=== PATIENT | female | born 1940 | race Caucasian/White ===

== ENCOUNTER 2018-07-30 02:00 | Emergency (ER) | payer OTHER, MEDICARE ==
--- OUTSIDE RECORDS SUMMARY | 2018-07-30 02:03 | XMS REPORT | Clinical Summary ---
:1940 Author Organization [facility] Address [address] [place] [id number] Care Team Providers Name Role Phone Vitaly Serrato MD Primary Care Provider Allergies Active Allergy Reactions Severity Noted Date Comments Sulfamethoxazole-Trimethoprim 07/29/2016 Cefaclor 07/29/2016 Codeine 07/29/2016 Epinephrine Low 07/29/2016 Penicillins 07/29/2016 Medications Medication Sig Dispensed Refills Start Date End Date Status besifloxacin (BESIVANCE) Apply to eye(s). 0 Active 0.6 % DrpS bromfenac (PROLENSA) Apply to eye(s). 0 Active 0.07 % Drop calcium carbonate Take 1 tablet by 0 Active (CALCIUM CARBONATE) 300 mouth 3 (three) mg Chew times daily. difluprednate (DUREZOL) Apply to eye(s). 0 Active 0.05 % Drop moxifloxacin (VIGAMOX) 1 drop. 0 Active 0.5 % ophthalmic solution multivitamin per tablet Take 1 tablet by 0 Active mouth daily. Active Problems Not on file Social History Tobacco Use Types Packs/Day Years Used Date Former Smoker Quit: 07/30/1989 Alcohol Use Drinks/Week oz/Week Comments Yes 2 Glasses of wine 1.2 Sex Assigned at Date Recorded Not on file Job Start Date Occupation Industry Not on file Not on file Not on file Travel History Travel Start Travel End No recent travel history available. Last Filed Vital Signs Not on file Plan of Treatment Not on file Implants Implanted Type Area Sld Inclusion Teacher Device Shelf Model / Identifier Expiration Serial / Lot Date Iol Tecnis Zcb00 25.5 Majo [id number] - [id number] Ophthalmology Left: [employer] 03/24/2020 [id number] / Implanted: Qty: 1 on 07/30/2016 by Dane Bee MD Eye [id number] / N./A Iol Tecnis Zcb00 23.0 Majo [id number] - [id number] Ophthalmology Right: [employer] 06/29/2020 [id number] / Implanted: Qty: 1 on 09/03/2016 by Dane Bee MD Eye [id number] / Results Not on fileafter 07/29/2017 Insurance Payer Benefit Plan / Group Subscriber ID Type Phone Address MEDICARE MEDICARE A B xxxxxxxxxx Medicare MCR SUPPLEMENT/INDIVIDUAL AARP/[facility] xxxxxxxxxxx [facility]
--- OUTSIDE RECORDS SUMMARY | 2018-07-30 02:03 | XMS REPORT ---
:1940 [facility] Address [address] [place] [address] Dr. Ward [address] [place] [address] Care Team Providers Name Role Phone Unavailable Unavailable Unavailable Problems This patient has no known problems. Allergies, Adverse Reactions, Alerts This patient has no known allergies or adverse reactions. Medications This patient has no known medications.
[2018-07-30 02:57] LABS: Absolute Lymphocytes (CBC) 3.3 K/uL (0.7-4.9); Absolute Monocytes 0.9 K/uL (0.1-1.3); Absolute Neutrophil 3.6 K/uL (1.8-8.0); Basophils % 0.9 % (0-1.3); Eosinophils % 6.3 % (0-4.4); Hematocrit 40.9 % (36.0-45.0); Lymphocytes % 39.4 % (15.3-44.8); MPV 11.1 fL (7.6-11.3); Monocytes % 10.3 % (3.3-12.3); RBC Red Blood Cell Count 4.39 M/uL (3.86-4.86)
[2018-07-30 02:58] LABS: Protime INR 0.91
[2018-07-30 03:26] LABS: ALT/SGPT 19 U/L (12-78); AST/SGOT 15 U/L (15-37); Albumin 3.8 g/dL (3.4-5.0); Alkaline Phosphatase 106 U/L (45-117); BUN Blood Urea Nitrogen 14 mg/dL (7-18); Bicarbonate 28 mmol/L (21-32); Bilirubin Direct < 0.1 mg/dL (0-0.2); Bilirubin Total 0.3 mg/dL (0.2-1.0); Glucose Level 102 mg/dL (74-106); Magnesium 2.4 mg/dL (1.8-2.4); NT PRO-BNP 57 pg/mL (<450); Potassium 3.5 mmol/L (3.5-5.1); Protein, Total 7.7 g/dL (6.4-8.2); Sodium Level 141 mmol/L (136-145); Troponin (Emerg Dept Use Only) < 0.02 ng/mL (0.0-0.045)
--- NOTE | 2018-07-30 03:52 | ER ---
Nurse's Notes [facility] Name: Citlaly Clements Age: 77 yrs Sex: Female : 1940 Arrival Date: 07/30/2018 Time: 02:05 Bed 4 Private MD: Diagnosis: Palpitations Presentation: 07/30 02:05 Presenting complaint: Patient states: that she woke up at midnight with pounding heart fc in her chest. Denies any nausea, vomiting or shortness of breath. States that she took her bp and it was high and the heart rate was irregular. Transition of care: patient was not received from another setting of care. Onset of symptoms was July 30, 2018 at 00:00. Risk Assessment: Do you want to hurt yourself or someone else? Patient reports no desire to harm self or others. Initial Sepsis Screen: Does the patient meet any 2 criteria? No. Patient's initial sepsis screen is negative. Does the patient have a suspected source of infection? No. Patient's initial sepsis screen is negative. Care prior to arrival: None. 02:05 Method Of Arrival: Ambulatory 02:05 Acuity: SUMEET 3 fc Historical: - Allergies: 02:22 Codeine; fc 02:22 Epinephrine; fc 02:22 PENICILLINS; fc 02:22 Sulfa (Sulfonamide Antibiotics); fc - Home Meds: 02:22 None [Active]; fc - PMHx: 02:22 Irregular heart beat; GERD; fc - PSHx: 02:22 Appendectomy; NECK SURG; fc - Immunization history:: Last tetanus immunization: unknown, Flu vaccine is not up to date. - Social history:: Smoking status: Patient/guardian denies using tobacco, Patient uses alcohol, 1-2 glasses of wine a night. - Ebola Screening: : Patient negative for fever greater than or equal to 101.5 degrees Fahrenheit, and additional compatible Ebola Virus Disease symptoms Patient denies exposure to infectious person Patient denies travel to an Ebola-affected area in the 21 days before illness onset. Screenin:05 Abuse screen: Denies threats or abuse. Nutritional screening: No deficits noted. fc Tuberculosis screening: No symptoms or risk factors identified. Fall Risk None identified. Assessment: 02:20 General: Appears in no apparent distress. comfortable, Behavior is cooperative, tl2 appropriate for age, anxious. Pain: Denies pain. Neuro: Level of Consciousness is awake, alert, obeys commands, Oriented to person, place, time, situation. Cardiovascular: Reports palpitations, Denies chest pain, nausea, shortness of breath, Rhythm is sinus rhythm Chest pain is denied. Respiratory: Airway is patent Respiratory effort is even, unlabored, Respiratory pattern is regular, symmetrical. GI: No signs and/or symptoms were reported involving the gastrointestinal system. Derm: Skin is pink, warm \T\ dry. 03:55 Reassessment: Patient and/or family updated on plan of care and expected duration. Pain tl1 level reassessed. Patient is alert, oriented x 3, equal unlabored respirations, skin warm/dry/pink. Discharge instructions given to patient, verbalized the understanding of instruction Patient denies pain at this time. Patient states feeling better. Patient states symptoms have improved. Vital Signs: 02:05 BP 137 / 104; Pulse 90; Resp 18; Temp 98.4(O); Pulse Ox 100% on R/A; Weight 70.31 kg fc (R); Height 5 ft. 4 in. (162.56 cm) (R); Pain 0/10; 03:28 BP 141 / 82; Pulse 72; Resp 15; Pulse Ox 99% on R/A; tl2 03:55 BP 134 / 82; Pulse 76; Resp 18; Pulse Ox 98% on R/A; tl1 02:05 Body Mass Index 26.61 (70.31 kg, 162.56 cm) Vitals: 03:29 Cardiac Rhythm Assessment Sinus rhythm. tl2 ED Course: 02:05 Patient arrived in ED. ag3 02:05 Arm band placed on Patient placed in an exam room, on a stretcher. fc 02:05 Patient has correct armband on for positive identification. Placed in gown. Bed in low fc position. Call light in reach. incising machine operator on. Pulse ox on. NIBP on. 02:15 Inserted saline lock: 22 gauge in right antecubital area, using aseptic technique. fc ,using aseptic technique. per Jacqueline MAGDALENO. 02:19 Triage completed. fc 02:20 Patient maintains SpO2 saturation greater than 95% on room air. tl2 02:31 X-ray completed. Portable x-ray completed in exam room. Patient tolerated procedure sg4 well. 02:33 XRAY Chest (1 view) In Process Unspecified. EDMS 02:34 Edilson Mathews MD is Attending Physician. pkl 04:09 No provider procedures requiring assistance completed. IV discontinued, intact, tl1 bleeding controlled, No redness/swelling at site. Pressure dressing applied. Administered Medications: No medications were administered Outcome: 03:52 Discharge ordered by . pkl 04:09 Discharged to home ambulatory, with significant other. tl1 04:09 Condition: improved 04:09 Discharge instructions given to patient, Instructed on discharge instructions, follow up and referral plans. Demonstrated understanding of instructions, follow-up care. 04:10 Patient left the ED. tl1 Signatures: Dispatcher [employer] EDMA Edilson Mathews MD MD pkl Asia Carl RN RN Julianne Reno RN RN tl1 Jacqueline Barnett RN RN tl2 Stacy Styles3 Lubna Cruz sg4
--- NOTE | 2018-07-30 03:52 | EDPHYS ---
Physician Documentation [facility] Name: Citlaly Clements Age: 77 yrs Sex: Female : 1940 Arrival Date: 07/30/2018 Time: 02:05 Bed 4 Private MD: ED Physician Edilson Mathews HPI: 07/30 03:48 This 77 yrs old Female presents to ER via Ambulatory with complaints of pkl Irregular Pulse. 03:48 The patient presents with a history of heart racing. Context: The symptoms occur at pkl rest. Onset: The symptoms/episode began/occurred just prior to arrival, 3 day(s) ago. Associated signs and symptoms: The patient has no apparent associated signs or symptoms. Historical: - Allergies: 02:22 Codeine; fc 02:22 Epinephrine; fc 02:22 PENICILLINS; fc 02:22 Sulfa (Sulfonamide Antibiotics); fc - Home Meds: 02:22 None [Active]; fc - PMHx: 02:22 Irregular heart beat; GERD; fc - PSHx: 02:22 Appendectomy; NECK SURG; fc - Immunization history:: Last tetanus immunization: unknown, Flu vaccine is not up to date. - Social history:: Smoking status: Patient/guardian denies using tobacco, Patient uses alcohol, 1-2 glasses of wine a night. - Ebola Screening: : Patient negative for fever greater than or equal to 101.5 degrees Fahrenheit, and additional compatible Ebola Virus Disease symptoms Patient denies exposure to infectious person Patient denies travel to an Ebola-affected area in the 21 days before illness onset. ROS: 03:48 Eyes: Negative for injury, pain, redness, and discharge, ENT: Negative for injury, pkl pain, and discharge, Neck: Negative for injury, pain, and swelling. 03:48 Cardiovascular: Positive for palpitations. 03:48 Respiratory: Negative for cough, shortness of breath. 03:48 Abdomen/GI: Negative for abdominal pain, nausea, vomiting, and diarrhea. 03:48 Back: Negative for acute changes. 03:48 : Negative for urinary symptoms. 03:48 MS/extremity: Negative for acute changes. 03:48 Skin: Negative for rash. 03:48 Neuro: Negative for altered mental status. Exam: 03:48 Head/Face: Normocephalic, atraumatic. Eyes: Pupils equal round and reactive to light, pkl extra-ocular motions intact. Lids and lashes normal. Conjunctiva and sclera are non-icteric and not injected. Cornea within normal limits. Periorbital areas with no swelling, redness, or edema. ENT: Nares patent. No nasal discharge, no septal abnormalities noted. Tympanic membranes are normal and external auditory canals are clear. Oropharynx with no redness, swelling, or masses, exudates, or evidence of obstruction, uvula midline. Mucous membranes moist. Neck: Trachea midline, no thyromegaly or masses palpated, and no cervical lymphadenopathy. Supple, full range of motion without nuchal rigidity, or vertebral point tenderness. No Meningismus. Chest/axilla: Normal chest wall appearance and motion. Nontender with no deformity. No lesions are appreciated. Cardiovascular: Regular rate and rhythm with a normal S1 and S2. No gallops, murmurs, or rubs. Normal PMI, no JVD. No pulse deficits. Respiratory: Lungs have equal breath sounds bilaterally, clear to auscultation and percussion. No rales, rhonchi or wheezes noted. No increased work of breathing, no retractions or nasal flaring. Abdomen/GI: Soft, non-tender, with normal bowel sounds. No distension or tympany. No guarding or rebound. No evidence of tenderness throughout. Back: No spinal tenderness. No costovertebral tenderness. Full range of motion. Skin: Warm, dry with normal turgor. Normal color with no rashes, no lesions, and no evidence of cellulitis. MS/ Extremity: Pulses equal, no cyanosis. Neurovascular intact. Full, normal range of motion. Neuro: Awake and alert, GCS 15, oriented to person, place, time, and situation. Cranial nerves II-XII grossly intact. Motor strength 5/5 in all extremities. Sensory grossly intact. Cerebellar exam normal. Normal gait. Vital Signs: 02:05 BP 137 / 104; Pulse 90; Resp 18; Temp 98.4(O); Pulse Ox 100% on R/A; Weight 70.31 kg fc (R); Height 5 ft. 4 in. (162.56 cm) (R); Pain 0/10; 03:28 BP 141 / 82; Pulse 72; Resp 15; Pulse Ox 99% on R/A; tl2 03:55 BP 134 / 82; Pulse 76; Resp 18; Pulse Ox 98% on R/A; tl1 02:05 Body Mass Index 26.61 (70.31 kg, 162.56 cm) fc MDM: 02:34 Patient medically screened. pkl 03:48 Data reviewed: vital signs, nurses notes, lab test result(s), EKG, radiologic studies, pkl plain films. ED course: Patient feeling better. Does not want to be admitted for further evaluations. 07/30 02:22 Order name: Basic Metabolic Panel; Complete Time: 03:42 tl1 07/30 02:22 Order name: CBC with Diff; Complete Time: 03:17 tl1 07/30 02:22 Order name: LFT's; Complete Time: 03:42 tl1 07/30 02:22 Order name: Magnesium; Complete Time: 03:42 tl1 07/30 02:22 Order name: NT PRO-BNP; Complete Time: 03:42 tl1 07/30 02:22 Order name: PT-INR; Complete Time: 03:17 tl1 07/30 02:22 Order name: Troponin (emerg Dept Use Only); Complete Time: 03:42 tl1 07/30 02:22 Order name: XRAY Chest (1 view) tl1 07/30 02:22 Order name: EKG; Complete Time: 02:23 tl1 07/30 02:22 Order name: Cardiac monitoring; Complete Time: 02:23 tl1 07/30 02:22 Order name: EKG - Nurse/Tech; Complete Time: 02:23 tl1 07/30 02:57 Order name: Thyroid Stimulating Hormone; Complete Time: 03:42 EDMS 07/30 03:28 Order name: T4 Free; Complete Time: 03:42 EDMS 07/30 02:22 Order name: IV Saline Lock; Complete Time: 02:23 tl1 07/30 02:22 Order name: Labs collected and sent; Complete Time: 02:23 tl1 07/30 02:22 Order name: O2 Per Protocol; Complete Time: 02:24 tl1 07/30 02:22 Order name: O2 Sat Monitoring; Complete Time: 02:24 tl1 Administered Medications: No medications were administered Disposition: 07/30/18 03:52 Discharged to Home. Impression: Palpitations. - Condition is Stable. - Medication Reconciliation Form, Thank You Letter, Antibiotic Education, Prescription Opioid Use form. - Follow up: Private Physician; When: 2 - 3 days; Reason: Re-evaluation by your physician. - Problem is new. - Symptoms have improved. Signatures: Dispatcher [employer] [facility] Edilson Mathews MD MD pkAsia Hdz, RN RN Julianne Corcoran RN RN tl1 Corrections: (The following items were deleted from the chart) 02:57 02:39 THYROID STIMULAT HORMONE+C.LAB.BRZ ordered. [facility] 04:10 03:52 07/30/2018 03:52 Discharged to Home. Impression: Palpitations. Condition is tl1 Stable. Forms are Medication Reconciliation Form, Thank You Letter, Antibiotic Education, Prescription Opioid Use. Follow up: Private Physician; When: 2 - 3 days; Reason: Re-evaluation by your physician. Problem is new. Symptoms have improved. pkl
[2018-07-30 04:25] VITALS: TEMP 98.4
[2018-07-30 04:28] VITALS: BP 134/82; O2SAT 98
--- NOTE | 2018-07-30 10:44 | RAD REPORT ---
EXAM DESCRIPTION: Rochelle Single View07/30/2018 2:34 am CLINICAL HISTORY: Chest pain COMPARISON: 2016 FINDINGS: The lungs appear clear of acute infiltrate. The heart is normal size. Descending aorta ap pears tortuous/ectatic
--- NOTE | 2018-07-30 13:54 | EKG ---
Test Date: 2018-07-30 Test Time: 02:24:32 Shank Carrier: JANE MEASUREMENT RESULTS: Intervals: Rate: 85 RI: 188 QRSD: 84 QT: 378 QTc: 449 [place]: P: 67 RI: 188 QRS: -36 T: 37 INTERPRETIVE STATEMENTS: Sinus rhythm with occasional premature ventricular complexes Left axis deviation Abnormal ECG Compared to ECG 06/30/2016 21:50:00 Ventricular premature complex(es) now present Electronically Signed On 07-30-18 13:53:36 ROLLER COASTER ENGINEER by Abhay Ewing
== END 2018-07-30 04:10 | disposition home or self-care (01) ==
LOC: ER 02:00
DX: R00.2 Palpitations (principal); Z88.0 Allergy status to penicillin; Z88.2 Allergy status to sulfonamides; Z88.5 Allergy status to narcotic agent; Z88.8 Allergy status to other drugs, medicaments and biological substances
CPT/HCPCS: 36415; 71045; 80048; 80076; 83735; 83880; 84439; 84443; 84484; 85025; 85610; 93005; 99284

== ENCOUNTER 2018-10-28 11:16 | Emergency (ER) | payer OTHER, MEDICARE ==
--- OUTSIDE RECORDS SUMMARY | 2018-10-28 11:33 | XMS REPORT | Clinical Summary ---
:1940 Author Organization [facility] Address [address] [place] [id number] Care Team Providers Name Role Phone Vitaly [...] Not on file Implants Implanted Type Area Cocktail Lounge Manager Device Shelf Model / Identifier Expiration Serial / Lot Date Iol Tecnis Zcb00 25.5 Majo [id number] - [id number] Ophthalmology Left: [employer] 03/24/2020 [id number] / Implanted: Qty: 1 on 07/30/2016 by Dane Bee MD Eye [id number] / N./A Iol Tecnis Zcb00 23.0 Majo [id number] - [id number] Ophthalmology Right: [employer] 06/29/2020 [id number] / Implanted: Qty: 1 on 09/03/2016 by Dane Bee MD Eye [id number] / Results Not on fileafter 10/27/2017 Insurance Payer Benefit Plan / Group Subscriber ID Type Phone Address MEDICARE MEDICARE A B xxxxxxxxxx Medicare MCR SUPPLEMENT/INDIVIDUAL AARP/[facility] xxxxxxxxxxx [facility]
--- OUTSIDE RECORDS SUMMARY | 2018-10-28 11:33 | XMS REPORT ---
:1940 [facility] Address [address] [place] [address] Dr. Ward [address] [place] [address] Care Team Providers Name Role Phone Unavailable Unavailable Unavailable Problems This patient has no known problems. Allergies, Adverse Reactions, Alerts This patient has no known allergies or adverse reactions. Medications This patient has no known medications.
[2018-10-28 11:58] LABS: Absolute Lymphocytes (CBC) 2.9 K/uL (0.7-4.9); Absolute Monocytes 0.8 K/uL (0.1-1.3); Absolute Neutrophil 3.3 K/uL (1.8-8.0); Basophils % 0.7 % (0-1.3); Eosinophils % 3.2 % (0-4.4); Hematocrit 42.8 % (36.0-45.0); Lymphocytes % 40.2 % (15.3-44.8); MPV 10.5 fL (7.6-11.3); Monocytes % 10.6 % (3.3-12.3); RBC Red Blood Cell Count 4.71 M/uL (3.86-4.86)
[2018-10-28] MEDS ORDERED: NA CHLORIDE 0.9% 1,000 ML ONE (12:06)
[2018-10-28] MEDS ORDERED: ONDANSETRON 4 MG/2 ML VIAL ONE (12:06)
[2018-10-28] MEDS ORDERED: FAMOTIDINE 20 MG/2 ML VIAL IV ONE (12:06)
[2018-10-28] MEDS ORDERED: MORPHINE 2 MG/ML SYR ONE (12:06)
[2018-10-28] MEDS ORDERED: LORazepam 2 MG/ML VIAL ONE (12:16)
[2018-10-28 12:39] LABS: Albumin 4.2 g/dL (3.4-5.0); Bilirubin Direct 0.2 mg/dL (0-0.2); Bilirubin Total 0.9 mg/dL (0.2-1.0); Potassium 3.4 mmol/L (3.5-5.1); Protein, Total 7.8 g/dL (6.4-8.2)
--- NOTE | 2018-10-28 13:33 | RAD REPORT ---
EXAM DESCRIPTION: CT - Abdomen Pelvis W Contrast - 10/28/2018 1:19 pm CLINICAL HISTORY: Abdominal pain . COMPARISON: none. TECHNIQUE: Computed axial tomography of the abdomen pelvis was obtained. 100 cc Isovue-300 was admin istered intravenously. Oral contrast was not requested which limits evaluation of bowel. All CT scans are performed using dose optimization technique as appropriate and may include automated exposure control or mA/KV adjustment according to patient size. FINDINGS: Small hepatic cyst Spleen, pancreas, adrenal and kidneys appear unremarkable. Diverticula stem from the colon without evidence of diverticulitis. The appendix is normal. An adnexal mass is not seen. Moderate hiatal hernia IMPRESSION: Moderate hiatal hernia
--- NOTE | 2018-10-28 13:46 | ER ---
Nurse's Notes [facility] Name: Citlaly Clements Age: 77 yrs Sex: Female : 1940 Arrival Date: 10/28/2018 Time: 11:16 Bed 4 Private MD: Diagnosis: Anxiety disorder, unspecified;Abdominal and pelvic pain Presentation: 10/28 11:19 Presenting complaint: Patient states: my PCP has been treating me for gastritis, today hj i started having stomach pain and i feel like im bloating , reports N/V; reports diarrhea for 2 days; reports chills;. Transition of care: patient was not received from another setting of care. Onset of symptoms was October 28, 2018. Risk Assessment: Do you want to hurt yourself or someone else? Patient reports no desire to harm self or others. Initial Sepsis Screen: Does the patient meet any 2 criteria? No. Patient's initial sepsis screen is negative. Does the patient have a suspected source of infection? No. Patient's initial sepsis screen is negative. Care prior to arrival: None. 11:19 Method Of Arrival: Ambulatory 11:19 Acuity: SUMEET 3 hj Triage Assessment: 11:22 General: Appears in no apparent distress. uncomfortable, Behavior is cooperative, hj appropriate for age, anxious. Pain: Complains of pain in abdomen. GI: Reports lower abdominal pain, upper abdominal pain, nausea, vomiting. Historical: - Allergies: 11:22 Codeine; hj 11:22 Epinephrine; hj 11:22 PENICILLINS; 11:22 Sulfa (Sulfonamide Antibiotics); hj - Home Meds: 11:22 Zantac Oral [Active]; hj - PMHx: 11:22 GERD; irregular heart beat; hj - PSHx: 11:22 NECK SURG; hj - Immunization history:: Adult Immunizations up to date. - Social history:: Smoking status: Patient/guardian denies using tobacco, Patient/guardian denies using alcohol. - Ebola Screening: : Patient negative for fever greater than or equal to 101.5 degrees Fahrenheit, and additional compatible Ebola Virus Disease symptoms Patient denies exposure to infectious person Patient denies travel to an Ebola-affected area in the 21 days before illness onset. Screenin:22 Abuse screen: Denies threats or abuse. Denies injuries from another. Nutritional hj screening: No deficits noted. Tuberculosis screening: No symptoms or risk factors identified. Fall Risk None identified. Assessment: 11:22 GI: Bowel sounds Abd is soft. hj 11:30 General: Appears in no apparent distress. uncomfortable, Behavior is agitated, anxious. jl7 Pain: Denies pain. Complains of pain in abdomen Quality of pain is described as pressure, Pt denies pain, states "It doesn't hurt, it's pressure." Is continuous, Noted to be agitated, grimacing, moaning. Neuro: Level of Consciousness is awake, alert, obeys commands, Oriented to person, place, time, situation. Cardiovascular: Patient's skin is warm and dry. Respiratory: Airway is patent Respiratory effort is even, unlabored, Respiratory pattern is symmetrical, hyperventilation Instructed pt to take slow deeps breaths, pt states "I can't, I need a bag." Non-rebreather mask placed on pt, not hooked to oxygen. GI: Abdomen is round non-distended, Bowel sounds present X 4 quads. Abd is soft X 4 quads Reports diarrhea, nausea, Patient currently denies constipation, vomiting. : No signs and/or symptoms were reported regarding the genitourinary system. EENT: No signs and/or symptoms were reported regarding the EENT system. Derm: Skin is pink, warm \\T\\ dry. Musculoskeletal: No signs and/or symptoms reported regarding the musculoskeletal system. 11:55 Reassessment: Told pt the medications ordered for pain, nausea and bloating and pt jl7 yells "I'm not in pain? It's pressure and I can't take codeine because it makes my heart race and I'm not nauseous so I don't want to morphine or Zofran! I'm allergic the epinephrine because it makes my heart race and I can tell that's what's going on here, I'm having anxiety or something and I need something to help ne relax!" Pt denies taking any epinephrine. ERD notified, see MAR for orders. 13:00 Reassessment: Patient appears in no apparent distress at this time. Patient and/or jl7 family updated on plan of care and expected duration. Pain level reassessed. Patient is alert, oriented x 3, equal unlabored respirations, skin warm/dry/pink. Patient states feeling better. Patient states symptoms have improved. Vital Signs: 11:23 BP 166 / 149; Pulse 99; Resp 18; Temp 97.6(O); Pulse Ox 100% on R/A; Weight 63.5 kg; hj Height 5 ft. 4 in. (162.56 cm); Pain 10/10; 11:26 BP 155 / 69; Pulse 89; Resp 26 S; Pulse Ox 100% on R/A; jl7 12:00 BP 159 / 84; Pulse 91; Resp 29 S; Pulse Ox 100% on R/A; jl7 12:30 BP 126 / 58; Pulse 75; Resp 18 S; Pulse Ox 100% on R/A; jl7 14:10 BP 121 / 61; Pulse 73; Resp 14 S; Pulse Ox 100% on R/A; jl7 11:23 Body Mass Index 24.03 (63.50 kg, 162.56 cm) hj ED Course: 11:16 Patient arrived in ED. as 11:21 Triage completed. hj 11:22 Arm band placed on right wrist. hj 11:22 Patient has correct armband on for positive identification. Placed in gown. Bed in low hj position. Call light in reach. Side rails up X 1. 11:29 Danielle Moulton, RASTA is Primary Nurse. jl7 11:30 pvc monitor on. Pulse ox on. NIBP on. jl7 11:30 Warm blanket given. jl7 11:37 Danilo Wetzel MD is Attending Physician. kdr 13:21 CT Abd/Pelvis - W/Contrast In Process Unspecified. EDMS 14:14 No provider procedures requiring assistance completed. IV discontinued, intact, jl7 bleeding controlled, No redness/swelling at site. Pressure dressing applied. Administered Medications: 11:59 Drug: NS 0.9% 1000 ml Route: IV; Rate: 125 ml/hr; Site: right antecubital; jl7 14:32 Follow up: IV Status: IV converted to saline lock jl7 12:00 Drug: NS 0.9% 500 ml Volume: 500 ml; Route: IV; Rate: 1 bolus; Site: right antecubital; jl7 12:45 Follow up: IV Status: Completed infusion; IV Intake: 500ml jl7 12:01 Drug: Pepcid 20 mg Route: IVP; Site: right antecubital; jl7 13:01 Follow up: Response: No adverse reaction jl7 12:06 Drug: Ativan 1 mg Route: IVP; Site: right antecubital; jl7 13:01 Follow up: Response: No adverse reaction; Marked relief of symptoms jl7 12:07 Not Given (Patient Refused): Zofran 4 mg IVP once; over 2 minutes jl7 13:57 Not Given (Patient Refused): morphine 2 mg IVP once jl7 Intake: 12:45 IV: 500ml; Total: 500ml. jl7 Outcome: 13:45 Discharge ordered by . kdr 14:14 Discharged to home ambulatory, with family. jl7 14:14 Condition: good 14:14 Discharge instructions given to patient, family, Instructed on discharge instructions, follow up and referral plans. medication usage, Demonstrated understanding of instructions, follow-up care, medications, Prescriptions given X 1. 14:14 Patient left the ED. jl7 Signatures: Dispatcher [employer] EDMS Danilo Wetzel MD MD kdr Martinez, Amelia as Joaquin, Henry RN RN Danielle Luu RN RN jl7 Corrections: (The following items were deleted from the chart) 11:25 11:23 Pulse 99bpm; Resp 18bpm; Pulse Ox 100% RA; Temp 97.6F Oral; 63.5 kg; Height 5 ft. hj 4 in.; BMI: 24.0; Pain 10/10; hj 11:26 11:23 Pulse 99bpm; Resp 18bpm; Pulse Ox 100% RA; Temp 97.6F Oral; 63.5 kg; Height 5 ft. hj 4 in.; BMI: 24.0; Pain 10/10; hj 14:33 14:32 Patient left the ED. jl7 jl7
--- NOTE | 2018-10-28 13:46 | EDPHYS ---
Physician Documentation [facility] Name: Citlaly Clements Age: 77 yrs Sex: Female : 1940 Arrival Date: 10/28/2018 Time: 11:16 Bed 4 Private MD: ED Physician Danilo Wetzel HPI: 10/28 11:55 This 77 yrs old Female presents to ER via Ambulatory with complaints of kdr Abdominal Pain. 11:55 The patient presents with abdominal pain that is diffuse, abdominal distention that is kdr diffuse. Onset: The symptoms/episode began/occurred Has been having abdominal pain for about a month or more. Has been under the care of Dr. Serrato. Was to have blood work this morning but was not NPO prior. The patient now has significant lower abdominal pain and denies any gas or stool since yesterday.. The symptoms do not radiate. Associated signs and symptoms: Pertinent positives: nausea, vomiting, and diarrhea, Pertinent negatives: chest pain, constipation, headache, hematuria, palpitations. The symptoms are described as achy, constant, crampy, vague. Modifying factors: The symptoms are alleviated by nothing, the symptoms are aggravated by movement. Severity of pain: At its worst the pain was moderate severe just prior to arrival, in the emergency department the pain is unchanged. The patient has not experienced similar symptoms in the past. As mentioned, the patient has been having diffuse abdominal pain for the past month and under the care of Dr. Serrato. The pain has become acutely worse this morning and the patient has been hyperventilating and has nearly passed out with numbness and tingling to all extremities. Historical: - Allergies: 11:22 Codeine; hj 11:22 Epinephrine; 11:22 PENICILLINS; hj 11:22 Sulfa (Sulfonamide Antibiotics); hj - Home Meds: 11:22 Zantac Oral [Active]; hj - PMHx: 11:22 GERD; irregular heart beat; hj - PSHx: 11:22 NECK SURG; hj - Immunization history:: Adult Immunizations up to date. - Social history:: Smoking status: Patient/guardian denies using tobacco, Patient/guardian denies using alcohol. - Ebola Screening: : Patient negative for fever greater than or equal to 101.5 degrees Fahrenheit, and additional compatible Ebola Virus Disease symptoms Patient denies exposure to infectious person Patient denies travel to an Ebola-affected area in the 21 days before illness onset. ROS: 11:55 Constitutional: Negative for fever, chills, and weight loss, Eyes: Negative for injury, kdr pain, redness, and discharge, ENT: Negative for injury, pain, and discharge, Neck: Negative for injury, pain, and swelling, Cardiovascular: Negative for chest pain, palpitations, and edema, Respiratory: Negative for shortness of breath, cough, wheezing, and pleuritic chest pain, Back: Negative for injury and pain, : Negative for injury, bleeding, discharge, and swelling, MS/Extremity: Negative for injury and deformity, Skin: Negative for injury, rash, and discoloration, Neuro: Negative for headache, weakness, numbness, tingling, and seizure activity. Psych: Negative for depression, anxiety, suicide ideation, homicidal ideation, and hallucinations, Allergy/Immunology: Negative for hives, rash, and allergies, Endocrine: Negative for neck swelling, polydipsia, polyuria, polyphagia, and marked weight changes, Hematologic/Lymphatic: Negative for swollen nodes, abnormal bleeding, and unusual bruising. 11:55 Abdomen/GI: Positive for abdominal pain, nausea, vomiting, and diarrhea, abdominal cramps, abdominal distension, Negative for black/tarry stool, rectal pain, rectal bleeding, bowel incontinence. Exam: 11:55 Constitutional: This is a well developed, well nourished patient who is awake, alert, kdr and in moderate distress. Head/Face: Normocephalic, atraumatic. Eyes: Pupils equal round and reactive to light, extra-ocular motions intact. Lids and lashes normal. Conjunctiva and sclera are non-icteric and not injected. Cornea within normal limits. Periorbital areas with no swelling, redness, or edema. Neck: Trachea midline, no thyromegaly or masses palpated, and no cervical lymphadenopathy. Supple, full range of motion without nuchal rigidity, or vertebral point tenderness. No Meningismus. Chest/axilla: Normal chest wall appearance and motion. Nontender with no deformity. No lesions are appreciated. Cardiovascular: Regular rate and rhythm with a normal S1 and S2. No gallops, murmurs, or rubs. Normal PMI, no JVD. No pulse deficits. Respiratory: Lungs have equal breath sounds bilaterally, clear to auscultation and percussion. No rales, rhonchi or wheezes noted. No increased work of breathing, no retractions or nasal flaring. Back: No spinal tenderness. No costovertebral tenderness. Full range of motion. Skin: Warm, dry with normal turgor. Normal color with no rashes, no lesions, and no evidence of cellulitis. MS/ Extremity: Pulses equal, no cyanosis. Neurovascular intact. Full, normal range of motion. Neuro: Awake and alert, GCS 15, oriented to person, place, time, and situation. Cranial nerves II-XII grossly intact. Motor strength 5/5 in all extremities. Sensory grossly intact. Cerebellar exam normal. Normal gait. 11:55 Abdomen/GI: Inspection: abdomen appears normal, Bowel sounds: diminished, in all quadrants, Palpation: soft, mild abdominal tenderness, in all quadrants. 11:55 Psych: Behavior/mood is cooperative, anxious, Affect is animated, Oriented to person, place, time, Patient has no thoughts/intents to harm self or others. Judgement / Insight is normal. Delusions/hallucinations are not present. Vital Signs: 11:23 BP 166 / 149; Pulse 99; Resp 18; Temp 97.6(O); Pulse Ox 100% on R/A; Weight 63.5 kg; hj Height 5 ft. 4 in. (162.56 cm); Pain 10/10; 11:26 BP 155 / 69; Pulse 89; Resp 26 S; Pulse Ox 100% on R/A; jl7 12:00 BP 159 / 84; Pulse 91; Resp 29 S; Pulse Ox 100% on R/A; jl7 12:30 BP 126 / 58; Pulse 75; Resp 18 S; Pulse Ox 100% on R/A; jl7 14:10 BP 121 / 61; Pulse 73; Resp 14 S; Pulse Ox 100% on R/A; jl7 11:23 Body Mass Index 24.03 (63.50 kg, 162.56 cm) hj MDM: 11:55 Data reviewed: vital signs, nurses notes, lab test result(s), radiologic studies. kdr Counseling: I had a detailed discussion with the patient and/or guardian regarding: the historical points, exam findings, and any diagnostic results supporting the discharge/admit diagnosis, lab results, radiology results. 13:45 Patient medically screened. kdr 13:58 Physician consultation: Vitaly Serrato MD was called at 13:55, was contacted at 13:55, kdr regarding patient's condition, outpatient follow-up, next week, and will see patient in office, next week. Admission orders: after a detailed discussion of the patient's condition and case, the admit orders are written by me. 10/28 11:38 Order name: Basic Metabolic Panel; Complete Time: 12:58 kdr 10/28 11:38 Order name: CBC with Diff; Complete Time: 12:58 kdr 10/28 11:38 Order name: Creatinine for Radiology; Complete Time: 12:58 kdr 10/28 11:38 Order name: Hepatic Function; Complete Time: 12:58 kdr 10/28 11:38 Order name: Lipase; Complete Time: 12:58 kdr 10/28 11:45 Order name: CT Abd/Pelvis - W/Contrast; Complete Time: 13:35 kdr 10/28 11:38 Order name: IV Saline Lock; Complete Time: 13:02 kdr 10/28 11:38 Order name: Labs collected and sent; Complete Time: 13:02 kdr Administered Medications: 11:59 Drug: NS 0.9% 1000 ml Route: IV; Rate: 125 ml/hr; Site: right antecubital; jl7 14:32 Follow up: IV Status: IV converted to saline lock jl7 12:00 Drug: NS 0.9% 500 ml Volume: 500 ml; Route: IV; Rate: 1 bolus; Site: right antecubital; jl7 12:45 Follow up: IV Status: Completed infusion; IV Intake: 500ml jl7 12:01 Drug: Pepcid 20 mg Route: IVP; Site: right antecubital; jl7 13:01 Follow up: Response: No adverse reaction jl7 12:06 Drug: Ativan 1 mg Route: IVP; Site: right antecubital; jl7 13:01 Follow up: Response: No adverse reaction; Marked relief of symptoms jl7 12:07 Not Given (Patient Refused): Zofran 4 mg IVP once; over 2 minutes jl7 13:57 Not Given (Patient Refused): morphine 2 mg IVP once jl7 Disposition: 10/28/18 13:45 Discharged to Home. Impression: Anxiety disorder, unspecified, Abdominal and pelvic pain. - Condition is Stable. - Discharge Instructions: Panic Attacks, Abdominal Pain, Adult, [id number]. - Prescriptions for Ativan 0.5 mg Oral Tablet - take 1 tablet by ORAL route Daily as needed As needed; 10 tablet. - Medication Reconciliation Form, Thank You Letter form. - Follow up: Private Physician; When: 2 - 3 days; Reason: If symptoms return, Further diagnostic work-up, Recheck today's complaints, Continuance of care, Re-evaluation by your physician. - Problem is new. - Symptoms have improved. Signatures: Dispatcher [employer] EDMS Danilo Wetzel MD MD kdr Martín Rebolledo RN RN hj Danielle Moulton RN RN jl7 Corrections: (The following items were deleted from the chart) 14:32 13:45 10/28/2018 13:45 Discharged to Home. Impression: Anxiety disorder, unspecified; jl7 Abdominal and pelvic pain. Condition is Stable. Forms are Medication Reconciliation Form, Thank You Letter, Antibiotic Education, Prescription Opioid Use. Follow up: Private Physician; When: 2 - 3 days; Reason: If symptoms return, Further diagnostic work-up, Recheck today's complaints, Continuance of care, Re-evaluation by your physician. Problem is new. Symptoms have improved. kdr
[2018-10-28 14:36] VITALS: TEMP 97.6; O2SAT 100
[2018-10-28 14:42] VITALS: BP 121/61
== END 2018-10-28 14:32 | disposition home or self-care (01) ==
LOC: ER 11:16
DX: F41.9 Anxiety disorder, unspecified (principal); R10.2 Pelvic and perineal pain; R11.2 Nausea with vomiting, unspecified; R19.7 Diarrhea, unspecified; K21.9 Gastro-esophageal reflux disease without esophagitis; Z88.5 Allergy status to narcotic agent; Z88.0 Allergy status to penicillin; Z88.2 Allergy status to sulfonamides
CPT/HCPCS: 96361; 85025; 80048; 36415; 80076; 83690; 74177; 96375; 96374; 99284; Q9967; J7030; J2405; J2270

== ENCOUNTER 2019-08-16 17:40 | Emergency (ER) | payer OTHER, MEDICARE ==
--- OUTSIDE RECORDS SUMMARY | 2019-08-16 17:42 | XMS REPORT | Summary of Care ---
:1940 Author Organization [facility] Address [address] [place] [address] Care Team Providers Name Role Phone Ama Vitaly Schuler Primary Care Provider Reason for Visit Reason Comments Appointment Encounter Details Date Type Department Care Team Description 03/28/2019 Telephone [facility] Mihir Rodgers MD Appointment Dermatology-[address] [id number] [place] [address] [address] [place] [address] [phone] Allergies Active Allergy Reactions Severity Noted Date Comments Cefaclor Hives 10/24/2012 Codeine Palpitations 10/24/2012 Epinephrine Other - See comments 10/24/2012 Shakes a lot Penicillins Hives 07/05/2012 Sulfa (Sulfonamide Antibiotics) Rash 07/05/2012 Sulfamethizole Anxiety 10/24/2012 documented as of this encounter (statuses as of 03/29/2019) Medications Medication Sig Dispensed Refills Start Date End Date Status Methylprednisolone Take 1 tablet 30 tablet 0 05/11/2016 Active (MEDROL) 4 mg tablet by mouth every morning. oxybutynin chloride 5 mg Take 1 tablet 30 tablet 4 08/18/2017 Active tablet by mouth daily. estradiol (ESTRACE) 0.01 % Insert 1 g 1 Tube 4 08/18/2017 Active (0.1 mg/gram) vaginal into vagina cream weekly. ketoconazole 2 % shampoo Apply to 120 mL 11 01/03/2018 Active area(s) every other day. dextran 70/hypromellose Place in each 0 Active (ARTIFICIAL TEARS eye. OPHTHALMIC) documented as of this encounter (statuses as of 03/29/2019) Active Problems Problem Noted Date Fibroids, intramural 10/25/2017 Pain pelvic 10/25/2017 Actinic keratoses 10/24/2012 Neoplasm of uncertain behavior of skin 10/24/2012 documented as of this encounter (statuses as of 03/29/2019) Social History Tobacco Use Types Packs/Day Years Used Date Former Smoker Smokeless Tobacco: Never Used Comments: Quit 30 yrs ago Alcohol Use Drinks/Week oz/Week Comments Yes 0 Standard drinks or equivalent 0.0 3 to 4 times/week Sex Assigned at Date Recorded Not on file Job Start Date Occupation Industry Not on file Not on file Not on file Travel History Travel Start Travel End No recent travel history available. documented as of this encounter Last Filed Vital Signs Not on filedocumented in this encounter Plan of Treatment Date Type Specialty Care Team Description 03/30/2019 Office Visit Dermatology Mihir Rodgers MD [address] [id number] 04/13/2019 Office Visit Dermatology Mihir Rodgers MD [address] [facility] [id number] [place] [address] [id number] 06/12/2019 Office Visit Dermatology Mihir Rodgers MD [address] [facility] [id number] [place] [address] [id number] Health Maintenance Due Date Last Done Comments DTaP,Tdap,and Td Vaccines (1 - Tdap) 1961 Zoster Recombinant Vaccine (SHINGRIX) (1 of 2) 1992 LUNG CANCER SCREEN: Recommended for age 55-80 with 30 + 1997 pack year history Medicare Wellness Visit 12/01/2007 Osteoporosis Screening 12/01/2007 PNEUMOCOCCAL VACCINES 65+ (1 of 2 - PCV13) 12/01/2007 INFLUENZA VACCINE (#1) 2019 documented as of this encounter Results Not on filedocumented in this encounter Insurance Payer Benefit Plan / Subscriber ID Effective Phone Address Type Group Dates MEDICARE MEDICARE PART xxxxxxxxxxx 2007-Pre [phone] [address] Medicare A & B sent [id number] [place] [id number] [facility] [id number] 2013-Pre 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
--- OUTSIDE RECORDS SUMMARY | 2019-08-16 17:42 | XMS REPORT | Summary of Care ---
:1940 Author Organization [facility] Address [address] [place] [address] Care Team Providers Name Role Phone Serrato Vitaly Schuler Primary Care Provider Reason for Visit Reason Comments Follow-up Encounter Details Date Type Department Care Team Description 03/30/2019 Office Visit [facility] Mihir Rodgers angioma ( Primary Dx); Dermatology-Kiya Cornelius MD Actinic keratosis; [address] History of nonmelanoma skin cancer; [address] [place] [address] [id number] Seborrheic keratoses; [place], [place]; [address] [address] Actinic keratoses [place], [place] [phone] [address] [phone] Allergies Active Allergy Reactions Severity Noted Date Comments Cefaclor Hives 10/24/2012 Codeine Palpitations 10/24/2012 Epinephrine Other - See comments 10/24/2012 Shakes a lot Penicillins Hives 07/05/2012 Sulfa (Sulfonamide Antibiotics) Rash 07/05/2012 Sulfamethizole Anxiety 10/24/2012 documented as of this encounter (statuses as of 03/30/2019) Medications Medication Sig Dispensed Refills Start Date [...] as of this encounter (statuses as of 03/30/2019) Active Problems Problem Noted Date Fibroids, intramural 10/25/2017 Pain pelvic 10/25/2017 Actinic keratoses 10/24/2012 Neoplasm of uncertain behavior of skin 10/24/2012 documented as of this encounter (statuses as of 03/30/2019) Social History Tobacco Use Types Packs/Day Years [...] Signs Not on filedocumented in this encounter Progress Notes Judith Santiago MD - 03/30/2019 11:20 AM CDT CC: check lesions HPI Citlaly Clements is a 78 year old female who presents for 6 month skin check. Today she has scaly spots on her temples, present for a few weeks, not itchy/painful. Has only been using wrinkle cream on them. Histories Past Medical History: Diagnosis Date Acid reflux (+) personal history of skin cancer Allergies Allergies Allergen Reactions Ceclor [Cefaclor] Hives Codeine Palpitations Epinephrine Other - See comments Shakes a lot Pcn [Penicillins] Hives Sulfa (Sulfonamide Antibiotics) Rash Sulfamethizole Anxiety Medications Current Outpatient Medications on File Prior to Visit Medication Sig Dispense Refill dextran 70/hypromellose (ARTIFICIAL TEARS OPHTHALMIC) Place in each eye. ketoconazole 2 % shampoo Apply to area(s) every other day. 120 mL 11 estradiol (ESTRACE) 0.01 % (0.1 mg/gram) vaginal cream Insert 1 g into vagina weekly. 1 Tube 4 oxybutynin chloride 5 mg tablet Take 1 tablet by mouth daily. 30 tablet 4 Methylprednisolone (MEDROL) 4 mg tablet Take 1 tablet by mouth every morning. 30 tablet 0 No current facility-administered medications on file prior to visit. Review of Systems Constitutional: Pain (-) Skin: Itching (+), Rash (+), Growth (+) Heme: Bleeding (-) Physical Exam General: No acute distress Psychiatric: Normal affect Pulmonary: Breathing unlabored FACE: Positive EYES: Negative NOSE: Negative EARS: Negative SCALP: Negative NECK: Positive CHEST: Positive ABDOMEN: Negative BACK: Positive RIGHT ARM: Negative LEFT ARM: Negative RIGHT LEG: Negative LEFT LEG: Negative Actinic Keratosis (A): erythematous scaling papules Conway Hemaniogioma (CH): smooth red and purple papules Dermatitis Erythema (DE): mild to moderate erythema and scaling Dermatitis Lichenified (DL): lichenification and thickening Dermatitis Weeping (DW): weeping and excoriation Inflamed Seborrheic Keratosis (ISK): inflamed warty brown papules and plaques Millium (ML): Small white cystic papule Molluscum Contagiosum (MC): umbilicated papule Nevus Macular (NM): well circumscribed evenly pigmented macule Nevus Papular (TOBACCO FARMWORKER): well circumscribed evenly pigmented papule Psoriasis Circumscribed (PC): well circumscribed erythema and scaling Psoriasis Diffuse (PD): diffuse patches of erythema and scaling Seborrheic Keratosis (SK): verrucous brown papules and plaques Scar (SR): cicatricial change Verruca Vulgarus (W): warty hyperkeratotic papule Assessment/Plan 1. Solar [place]ent[place]ines - benign etiology discussed, reassurance provided. - Continue to monitor - The nature of sun-induced photo-aging and skin cancers is discussed. Sun avoidance, protective clothing, and the use of 30-SPF sunscreens is advised. Observe closely for skin damage/changes, and call if such occurs. Conway angioma - Benign appearing, reassurance given Actinic Keratosis - Etiology and treatments discussed - Sun protection encouraged - After obtaining verbal consent, 3 lesion(s) were treated with liquid nitrogen. - Patient was informed of the potential for erythema, blister formation, and scar at the site of treatment. Seborrheic Keratosis - benign etiology discussed, reassurance provided. - offered LN2 History of skin cancer BCC, left lateral orbit and right chin treated with MMS in February 2015 - Well-healed scar(s), no evidence of recurrence - Continue sun protection RTC 3 months Patient was seen in clinic and plan of care discussed with Mihir Rodgers MD. Judith Santiago MD Dermatology PGY-2 03/30/2019 Leatha mccloud MA - 03/30/2019 11:20 AM CDT.Patient is being seen in clinic for follow up Patient is alert,ambulatory,and oriented. Medication and allergies reviewed with patient. Vital sign deferred by doctor. No pain noted at this time. No falls in the past 12 months. Preferred language is Mauritian. Leatha James MA 03/30/2019 10:54 AM documented in this encounter Plan of Treatment Date Type Specialty Care Team Description 07/03/2019 Office Visit Dermatology Mihir Rodgers MD [id number] [place], [place] [id number] Health Maintenance Due Date Last Done Comments [...] Results Not on filedocumented in this encounter Visit Diagnoses Diagnosis Conway angioma - Primary Nevus, non-neoplastic Actinic keratosis History of nonmelanoma skin cancer Personal history of other malignant neoplasm of skin Seborrheic keratoses [place] Other dyschromia Actinic keratoses Actinic keratosis documented in this encounter Insurance Payer Benefit Plan / Subscriber ID Effective Phone Address Type Group Dates MEDICARE MEDICARE PART xxxxxxxxxxx 2007-Pre [phone] [address] Medicare A & B sent [id number] [id number] [place] [id number] [facility] [id number] 2013-Pre 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
--- OUTSIDE RECORDS SUMMARY | 2019-08-16 17:42 | XMS REPORT ---
:1940 Author [facility] Address [address] [place] [address] Dr. [address] [place] [address] Care Team Providers Name Role Phone Unavailable Unavailable Unavailable Problems This patient has no known problems. Allergies, Adverse Reactions, Alerts This patient has no known allergies or adverse reactions. Medications This patient has no known medications.
--- OUTSIDE RECORDS SUMMARY | 2019-08-16 17:43 | XMS REPORT | Summary of Care ---
:1940 Author Organization [facility] Address [address] [place] [address] Care Team Providers Name Role Phone Serrato Vitaly Schuler Primary Care Provider Reason for Visit Reason Comments Follow-up Encounter Details Date Type Department Care Team Description 03/30/2019 Office Visit [facility] Mihir Rodgers angioma ( Primary Dx); Dermatology-Kiya Cornelius MD Actinic keratosis; [address] History of nonmelanoma skin cancer; [address] [place] [address] [id number] Seborrheic keratoses; [place], [place]; [address] [address] Actinic keratoses [place], [place] [phone] [address] [phone] Allergies Active Allergy Reactions Severity Noted Date Comments Cefaclor Hives 10/24/2012 Codeine Palpitations 10/24/2012 Epinephrine Other - See comments 10/24/2012 Shakes a lot Penicillins Hives 07/05/2012 Sulfa (Sulfonamide Antibiotics) Rash 07/05/2012 Sulfamethizole Anxiety 10/24/2012 documented as of this encounter (statuses as of 03/31/2019) Medications Medication Sig Dispensed Refills Start Date [...] as of this encounter (statuses as of 03/31/2019) Active Problems Problem Noted Date Fibroids, intramural 10/25/2017 Pain pelvic 10/25/2017 Actinic keratoses 10/24/2012 Neoplasm of uncertain behavior of skin 10/24/2012 documented as of this encounter (statuses as of 03/31/2019) Social History Tobacco Use Types Packs/Day Years [...] on filedocumented in this encounter Progress Notes Mihir Rodgers MD - 03/30/2019 11:20 AM CDTI saw the patient with Dr. Judith Santiago . I was present for the procedure(s). I agree with Dr. Santiago's note as recorded. Mihir Rodgers M.D. March 31, 2019, 3:08 PM Judith Espitia MD - 03/30/2019 11:20 AM CDT CC: [...] well circumscribed evenly pigmented macule Nevus Papular (SOFTWARE TEST MANAGER): well circumscribed evenly pigmented papule Psoriasis Circumscribed [...] the past 12 months. Preferred language is Stateless. Leatha James MA 03/30/2019 10:54 AM documented in this encounter Plan of Treatment Date Type Specialty Care Team Description 07/03/2019 Office Visit Dermatology Mihir Rodgers MD [id number] [place] [address] [phone] Health Maintenance Due Date Last Done Comments [...] BOX Medicare A & B sent [id number] [place] [id number] [facility] [id number] 2013-Pre [address] O[address] Medicare HEALTHCARE HEALTHCARE sent [id number] Supplement MEDICARE [place] SUPPLEMENT [place] [id number] [phone] (Work) documented as of this encounter Advance Directives Type Date Recorded Patient Loader Unloader Explanation Advance Directives and Living 07/10/2013 10:05 AM Will Power of Photography Sales Associate 07/10/2013 10:05 AM
--- OUTSIDE RECORDS SUMMARY | 2019-08-16 17:43 | XMS REPORT | Summary of Care ---
:1940 Author Organization [facility] Address [address] [place] [id number] Care Team Providers Name Role Phone Serrato Vitaly Schuler Primary Care Provider Reason for Visit Reason Comments Follow-up Encounter Details Date Type Department Care Team Description 03/30/2019 Office Visit [facility] Mihir Rodgers angioma ( Primary Dx); Dermatology-Kiya Cornelius MD Actinic keratosis; [address] History of nonmelanoma skin cancer; [address] [place] [address] [id number] Seborrheic keratoses; [place], [place]; [address] [id number] Actinic keratoses [place], [place] [phone] [phone] Allergies Active Allergy Reactions Severity Noted Date [...] well circumscribed evenly pigmented macule Nevus Papular (ACADEMIC ADVISEMENT DIRECTOR): well circumscribed evenly pigmented papule Psoriasis Circumscribed [...] the past 12 months. Preferred language is Finnish. Leatha James MA 03/30/2019 10:54 AM documented in this encounter Plan of Treatment Date Type Specialty Care Team Description 07/03/2019 Office Visit Dermatology Mihir Rodgers MD [id number] [place], [place] [id number] Health Maintenance Due Date Last Done Comments [...] BOX Medicare A & B sent [id number] [place]ANN [id number] [facility] [id number] 2013-Pre P. O. 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
[2019-08-16] MEDS ORDERED: PROPRANOLOL HCL 10 MG TAB ONE (20:31)
[2019-08-16 20:41] LABS: Absolute Lymphocytes (CBC) 1.9 K/uL (0.7-4.9); Basophils % 0.6 % (0-1.3); Hematocrit 40.3 % (36.0-45.0); Lymphocytes % 27.9 % (15.3-44.8); MPV 11.2 fL (7.6-11.3); RBC Red Blood Cell Count 4.31 M/uL (3.86-4.86)
[2019-08-16 20:55] LABS: ALT/SGPT 18 U/L (12-78); AST/SGOT 16 U/L (15-37); Albumin 3.9 g/dL (3.4-5.0); Alkaline Phosphatase 73 U/L (45-117); BUN Blood Urea Nitrogen 14 mg/dL (7-18); Bicarbonate 28 mmol/L (21-32); Bilirubin Direct 0.1 mg/dL (0-0.2); Bilirubin Total 0.4 mg/dL (0.2-1.0); Glucose Level 102 mg/dL (74-106); Magnesium 2.4 mg/dL (1.8-2.4); NT PRO-BNP 217 pg/mL (<450); Potassium 4.1 mmol/L (3.5-5.1); Protein, Total 7.4 g/dL (6.4-8.2); Sodium Level 141 mmol/L (136-145); Troponin (Emerg Dept Use Only) < 0.02 ng/mL (0.0-0.045)
[2019-08-16 21:07] LABS: Protime INR 0.88
--- NOTE | 2019-08-16 21:42 | EDPHYS ---
Physician Documentation [facility] Name: Citlaly Clements Age: 78 yrs Sex: Female : 1940 Arrival Date: 08/16/2019 Time: 17:47 Bed 15 Private MD: ED Physician Ruben Martin HPI: 08/17 01:37 This 78 yrs old Female presents to ER via Ambulatory with complaints of High tw4 Blood Pressure. 01:37 The patient has elevated blood pressure and discovered this at home. Onset: The tw4 symptoms/episode began/occurred 2 week(s) ago. Modifying factors: The symptoms are aggravated by. Associated signs and symptoms: The patient has no apparent associated signs or symptoms. Severity of symptoms: At its worst the blood pressure was 180 mm Hg. The patient has not experienced similar symptoms in the past. The patient has been recently seen by a physician: Dr. Serrato earlier today. Historical: - Allergies: 08/16 18:45 Codeine; iw 18:45 Epinephrine; iw 18:45 PENICILLINS; iw 18:45 Sulfa (Sulfonamide Antibiotics); iw - PMHx: 18:45 GERD; irregular heart beat; iw - PSHx: 18:45 NECK SURG; iw - Immunization history:: Adult Immunizations not up to date. - Social history:: Smoking status: Patient denies any tobacco usage or history of. - Ebola Screening: : Patient negative for fever greater than or equal to 101.5 degrees Fahrenheit, and additional compatible Ebola Virus Disease symptoms Patient denies exposure to infectious person Patient denies travel to an Ebola-affected area in the 21 days before illness onset No symptoms or risks identified at this time. ROS: 08/17 01:37 Constitutional: Negative for fever, chills, and weight loss, Eyes: Negative for injury, tw4 pain, redness, and discharge, Cardiovascular: Negative for chest pain, palpitations, and edema, Respiratory: Negative for shortness of breath, cough, wheezing, and pleuritic chest pain, Abdomen/GI: Negative for abdominal pain, nausea, vomiting, diarrhea, and constipation, Back: Negative for injury and pain, MS/Extremity: Negative for injury and deformity, Skin: Negative for injury, rash, and discoloration, Neuro: Negative for headache, weakness, numbness, tingling, and seizure. Exam: 01:37 Constitutional: This is a well developed, well nourished patient who is awake, alert, tw4 and in no acute distress. Head/Face: Normocephalic, atraumatic. Chest/axilla: Normal chest wall appearance and motion. Nontender with no deformity. No lesions are appreciated. Cardiovascular: Regular rate and rhythm with a normal S1 and S2. No gallops, murmurs, or rubs. Normal PMI, no JVD. No pulse deficits. Respiratory: Lungs have equal breath sounds bilaterally, clear to auscultation and percussion. No rales, rhonchi or wheezes noted. No increased work of breathing, no retractions or nasal flaring. Abdomen/GI: Soft, non-tender, with normal bowel sounds. No distension or tympany. No guarding or rebound. No evidence of tenderness throughout. Back: No spinal tenderness. No costovertebral tenderness. Full range of motion. MS/ Extremity: Pulses equal, no cyanosis. Neurovascular intact. Full, normal range of motion. Neuro: Awake and alert, GCS 15, oriented to person, place, time, and situation. Cranial nerves II-XII grossly intact. Motor strength 5/5 in all extremities. Sensory grossly intact. Cerebellar exam normal. Normal gait. Vital Signs: 08/16 18:45 BP 161 / 77; Pulse 93; iw 18:45 Resp 16; Temp 98.2; Pulse Ox 100% on R/A; Weight 65.77 kg; Height 5 ft. 4 in. (162.56 iw cm); Pain 0/10; 19:45 BP 158 / 81; Pulse 84; Pulse Ox 100% ; Pain 0/10; fu 20:45 BP 141 / 84; Pulse 85; Resp 22; Pulse Ox 100% ; Pain 0/10; fu 21:55 BP 144 / 79; Pulse 76; Resp 18; Temp 98; Pulse Ox 98% ; ea 18:45 Body Mass Index 24.89 (65.77 kg, 162.56 cm) iw MDM: 19:32 Patient medically screened. tw4 08/17 01:37 Differential diagnosis: hypertensive crisis, Malignant HTN. Data reviewed: vital signs, tw4 nurses notes. Data interpreted: Pulse oximetry: Interpretation: normal. Counseling: I had a detailed discussion with the patient and/or guardian regarding: the historical points, exam findings, and any diagnostic results supporting the discharge/admit diagnosis. Special discussion: I discussed with the patient/guardian in detail that at this point there is no indication for admission to the hospital. It is understood, however, that if the symptoms persist or worsen the patient needs to return immediately for re-evaluation. 08/16 19:55 Order name: Basic Metabolic Panel 08/16 19:55 Order name: CBC with Diff 08/16 19:55 Order name: LFT's 08/16 19:55 Order name: Magnesium 08/16 19:55 Order name: NT PRO-BNP 08/16 19:55 Order name: PT-INR 08/16 19:55 Order name: Troponin (emerg Dept Use Only) 08/16 19:55 Order name: XRAY Chest (1 view) 08/16 19:55 Order name: EKG; Complete Time: 19:57 08/16 19:55 Order name: Cardiac monitoring 08/16 19:55 Order name: EKG - Nurse/Tech 08/16 19:55 Order name: IV Saline Lock; Complete Time: 20:55 08/16 19:55 Order name: Labs collected and sent; Complete Time: 20:55 08/16 19:55 Order name: O2 Per Protocol 08/16 19:55 Order name: O2 Sat Monitoring; Complete Time: 20:55 EC:39 Rate is 85 beats/min. Rhythm is regular with Occasional PVCs. QRS [place] is Normal. PA tw4 interval is normal. QRS interval is normal. QT interval is normal. No Q waves. T waves are Normal. No ST changes noted. Clinical impression: NSR w/ Non-specific ST/T Changes. Interpreted by me. Reviewed by me. Administered Medications: 08/16 20:45 Drug: Propranolol 10 mg Route: PO; fu 21:59 Follow up: Response: No adverse reaction ea Disposition: 08/16/19 21:41 Discharged to Home. Impression: HYPERTENSION . - Condition is Stable. - Discharge Instructions: Hypertension. - Prescriptions for Propranolol 10 mg Oral Tablet - take 1 tablet by ORAL route every 12 hours; 60 tablet. - Medication Reconciliation Form, Thank You Letter, Antibiotic Education, Prescription Opioid Use form. - Follow up: Private Physician; When: Upon discharge from the Emergency Department; Reason: Recheck today's complaints, Continuance of care, Re-evaluation by your physician. - Problem is new. - Symptoms have improved. Signatures: Dispatcher [employer] EDMartha Wagner, RN Julita Flores RN Sedrick Meeks ea, RN Ruben Gomez MD MD tw4 Corrections: (The following items were deleted from the chart) 22:05 21:41 08/16/2019 21:41 Discharged to Home. Impression: HYPERTENSION . Condition is ea Stable. Forms are Medication Reconciliation Form, Thank You Letter, Antibiotic Education, Prescription Opioid Use. Follow up: Private Physician; When: Upon discharge from the Emergency Department; Reason: Recheck today's complaints, Continuance of care, Re-evaluation by your physician. Problem is new. Symptoms have improved. tw4
--- NOTE | 2019-08-16 21:42 | ER ---
Nurse's Notes [facility] Name: Citlaly Clements Age: 78 yrs Sex: Female : 1940 Arrival Date: 08/16/2019 Time: 17:47 Bed 15 Private MD: Diagnosis: HYPERTENSION Presentation: 08/16 18:44 Presenting complaint: Patient states: a week ago started having high BP, saw Dr. Serrato iw today and was told to monitor BP and go see him in a month, denies headache blurry vision or dizziness. Transition of care: patient was not received from another setting of care. Onset of symptoms was July 2019. Risk Assessment: Do you want to hurt yourself or someone else? Patient reports no desire to harm self or others. Initial Sepsis Screen: Does the patient meet any 2 criteria? No. Patient's initial sepsis screen is negative. Does the patient have a suspected source of infection? No. Patient's initial sepsis screen is negative. Care prior to arrival: None. 18:44 Method Of Arrival: Ambulatory iw 18:44 Acuity: SUMEET 3 iw Historical: - Allergies: 18:45 Codeine; iw 18:45 Epinephrine; iw 18:45 PENICILLINS; iw 18:45 Sulfa (Sulfonamide Antibiotics); iw - PMHx: 18:45 GERD; irregular heart beat; iw - PSHx: 18:45 NECK SURG; iw - Immunization history:: Adult Immunizations not up to date. - Social history:: Smoking status: Patient denies any tobacco usage or history of. - Ebola Screening: : Patient negative for fever greater than or equal to 101.5 degrees Fahrenheit, and additional compatible Ebola Virus Disease symptoms Patient denies exposure to infectious person Patient denies travel to an Ebola-affected area in the 21 days before illness onset No symptoms or risks identified at this time. Screenin:14 Abuse screen: Denies threats or abuse. Denies injuries from another. Nutritional fu screening: No deficits noted. Tuberculosis screening: No symptoms or risk factors identified. Fall Risk None identified. Assessment: 19:39 General: Appears in no apparent distress. Behavior is calm, cooperative, appropriate fu for age, Reports high blood pressure. Pain: Denies pain. Neuro: Level of Consciousness is awake, alert, obeys commands, Oriented to person, place, time, situation, Denies weakness blurred vision dizziness, numbness headache. 21:08 Reassessment: Patient appears in no apparent distress at this time. Patient is alert, fu oriented x 3, equal unlabored respirations, skin warm/dry/pink. 22:04 Reassessment: Patient and/or family updated on plan of care and expected duration. Pain ea level reassessed. Patient is alert, oriented x 3, equal unlabored respirations, skin warm/dry/pink. Discharge instruction given to patient, verbalized the understanding of instruction. Vital Signs: 18:45 BP 161 / 77; Pulse 93; iw 18:45 Resp 16; Temp 98.2; Pulse Ox 100% on R/A; Weight 65.77 kg; Height 5 ft. 4 in. (162.56 iw cm); Pain 0/10; 19:45 BP 158 / 81; Pulse 84; Pulse Ox 100% ; Pain 0/10; fu 20:45 BP 141 / 84; Pulse 85; Resp 22; Pulse Ox 100% ; Pain 0/10; fu 21:55 BP 144 / 79; Pulse 76; Resp 18; Temp 98; Pulse Ox 98% ; ea 18:45 Body Mass Index 24.89 (65.77 kg, 162.56 cm) iw ED Course: 17:47 Patient arrived in ED. mr 18:45 Triage completed. iw 18:45 Arm band placed on. iw 19:19 Sedrick Keller, RN is Primary Nurse. fu 19:23 Ruben Martin MD is Attending Physician. tw4 20:10 Inserted saline lock: 22 gauge in right antecubital area, using aseptic technique. fu Blood collected. 20:27 XRAY Chest (1 view) In Process Unspecified. EDMS 22:04 No provider procedures requiring assistance completed. IV discontinued, intact, ea bleeding controlled, No redness/swelling at site. Pressure dressing applied. 22:05 Patient has correct armband on for positive identification. Bed in low position. Call ea light in reach. Side rails up X2. Administered Medications: 20:45 Drug: Propranolol 10 mg Route: PO; fu 21:59 Follow up: Response: No adverse reaction ea Outcome: 21:41 Discharge ordered by . tw4 22:05 Discharged to home ambulatory, with family. ea 22:05 Condition: stable 22:05 Discharge instructions given to patient, Instructed on discharge instructions, follow up and referral plans. medication usage, Demonstrated understanding of instructions, follow-up care, medications, Prescriptions given X 1. 22:05 Patient left the ED. ronal Signatures: Dispatcher [employer] NASRARI ArzateYari Irene, RN Julita Flores RN Sedrick Meeks ea, RN RN fu Wadley, Terrence, MD MD tw4
[2019-08-17 04:18] VITALS: O2SAT 100
[2019-08-17 04:28] VITALS: TEMP 98.2
[2019-08-17 04:29] VITALS: BP 141/84
--- NOTE | 2019-08-17 06:49 | RAD REPORT ---
EXAM DESCRIPTION: RAD - Chest Single View - 08/16/2019 8:27 pm CLINICAL HISTORY: ..Irregular heartbeat, hypertension abdominal pain COMPARISON: Chest Single View dated 07/30/2018; Chest Single View dated 06/30/2016; Abdomen Pelvis W Contrast dated 10/28/2018 TECHNIQUE: AP portable chest image was obtained 08/16/2019 8:27 pm . FINDINGS: No focal lung parenchymal process. Chronic interstitial pattern matches comparison. Modera te-size hiatal hernia present and stable. Heart and vasculature are normal. No measurable pleural eff usion and no pneumothorax. No acute bony abnormality seen. No acute aortic findings suspected. IMPRESSION: No acute cardiopulmonary process. No significant change from comparison.
--- NOTE | 2019-08-17 13:38 | EKG ---
Test Date: 2019-08-16 Test Time: 20:28:09 Ground Crew Supervisor: MIRIAN MEASUREMENT RESULTS: Intervals: Rate: 85 CA: 172 QRSD: 84 QT: 398 QTc: 473 [place]: P: 57 CA: 172 QRS: -33 T: 39 INTERPRETIVE STATEMENTS: Sinus rhythm with frequent premature ventricular complexes Possible Left atrial enlargement Left axis deviation Abnormal ECG Compared to ECG 07/30/2018 02:24:32 No significant changes Electronically Signed On 08-17-19 13:37:06 PANTOGRAPH II ENGRAVER by Abhay Ewing
== END 2019-08-16 22:05 | disposition home or self-care (01) ==
LOC: ER 17:40
DX: I10 Essential (primary) hypertension (principal); Z88.0 Allergy status to penicillin; Z88.2 Allergy status to sulfonamides; Z88.5 Allergy status to narcotic agent; Z88.8 Allergy status to other drugs, medicaments and biological substances
CPT/HCPCS: 36415; 71045; 80048; 80076; 83735; 83880; 84484; 85025; 85610; 93005; 99284

== ENCOUNTER 2024-06-26 10:03 | Emergency (ER) | payer OTHER ==
[2024-06-26] MEDS ORDERED: NA CHLORIDE 0.9% 500 ML ONE (10:26)
[2024-06-26] MEDS ORDERED: ONDANSETRON 4 MG/2 ML VIAL ONE (10:27)
[2024-06-26 10:47] LABS: Absolute Eosinophils 0.2 K/uL (0-0.5); Absolute Lymphocytes (CBC) 2.1 K/uL (0.7-4.9); Absolute Monocytes 0.6 K/uL (0.1-1.3); Absolute Neutrophil 2.8 K/uL (1.8-8.0); Basophils % 0.6 % (0-1.3); Eosinophils % 4.3 % (0-4.4); Hematocrit 39.8 % (36.0-45.0); Lymphocytes % 36.3 % (15.3-44.8); MCH 30.2 pg (27.0-35.0); MCHC 32.8 g/dL (32.0-36.0); MCV 92.3 fL (80-100); MPV 10.3 fL (7.6-11.3); Neutrophils % 48.8 % (41.7-73.7); Platelets 151 thou/uL (152-406); RBC Red Blood Cell Count 4.31 M/uL (3.86-4.86); Red Cell Distribution Width 13.7 % (12.1-15.2)
[2024-06-26 11:05] LABS: Anion Gap 7.5 mEq/L (5.0-15.0); Potassium 3.5 mEq/L (3.5-5.1); Troponin High Sensitivity 4.5 pg/mL (<58.9)
--- NOTE | 2024-06-26 11:13 | RAD REPORT ---
Procedure: Chest Single View HISTORY: Cough COMPARISON: 2019 FINDINGS: The lungs appear clear of acute infiltrate. No significant pleural effusion noted. The heart is normal size. Moderate to large hiatal hernia IMPRESSION: No acute abnormality is displayed.
--- NOTE | 2024-06-26 11:43 | RAD REPORT ---
EXAMINATION: CT ABDOMEN AND PELVIS WITH CONTRAST CLINICAL INDICATION: Abdominal pain TECHNIQUE: CT abdomen and pelvis was performed, after the administration of 100 cc Isovue-300.. Sagit xavier and coronal reconstructions were obtained. One or more of the following dose reduction techniques were used: Automated exposure control, adjustment of the mA and kV according to patient si ze, and iterative reconstruction. Unless otherwise specified, incidental findings do not require dedicated imaging follow-up. [id number]. Oral contrast was not given which limits evaluation of bowel and appendix. COMPARISON: .2019 FINDINGS: Moderate to large hiatal hernia. It contains a chronic gastric volvulus. No obstruction noted. Small hepatic cyst. The spleen, pancreas, adrenals and kidneys appear unremarkable No evidence of diverticulitis. Moderate amount stool within the colon. No adnexal mass. Normal appendix. : IMPRESSION: Moderate to large hiatal hernia containing a chronic gastric volvulus. No obstruction. Moderate amount of stool within the colon
[2024-06-26 11:56] LABS: Specific Gravity 1.015 (1.005-1.030); Sqamous Epithelial None Seen /HPF (None Seen); Urine Bacteria None Seen /HPF (<20); Urine Bilirubin NEGATIVE (Negative); Urine Blood Negative (Negative); Urine Clarity Clear (Clear); Urine Color Colorless (Yellow); Urine Culture Reflex Order NOT NEEDED; Urine Glucose NEGATIVE (Negative); Urine Ketones NEGATIVE (Negative); Urine Micro Reflex YN NO BILL MICROSCOPIC; Urine Mucus Slight /HPF (None Seen); Urine Nitrite NEGATIVE (Negative); Urine Protein NEGATIVE (Negative); Urine RBC <5 /HPF (None Seen); Urine Urobilinogen Normal (Normal); Urine WBC None Seen /HPF (<5)
--- NOTE | 2024-06-26 12:23 | ER ---
Nurse's Notes [facility] Name: Citlaly Clements Age: 83 yrs Sex: Female : 1940 Arrival Date: 06/26/2024 Time: 10:03 Bed 13 Private MD: Diagnosis: Weakness Presentation: 06/26 10:16 Chief complaint: Patient states: started last week with diarrhea and vomiting got iw better but now feels very weak and nauseated and dizzy. Coronavirus screen: At this time, the client does not indicate any symptoms associated with coronavirus-19. Ebola Screen: No symptoms or risks identified at this time. Initial Sepsis Screen: Does the patient meet any 2 criteria? No. Patient's initial sepsis screen is negative. Does the patient have a suspected source of infection? No. Patient's initial sepsis screen is negative. Risk Assessment: Do you want to hurt yourself or someone else? Patient reports no desire to harm self or others. Onset of symptoms was June 19, 2024. 10:16 Method Of Arrival: Wheelchair iw 10:16 Acuity: SUMEET 3 iw Historical: - Allergies: 10:17 Epinephrine; panic attack; iw 10:17 PENICILLINS; iw 10:17 Codeine; iw 10:17 Sulfa (Sulfonamide Antibiotics); iw - PMHx: 10:17 GERD; irregular heart beat; iw - PSHx: 10:17 slipped disc; iw - Immunization history:: Adult Immunizations up to date. - Infectious Disease History:: Denies. - Social history:: Smoking status: Patient denies any tobacco usage or history of. Screenin:42 [facility] ED Fall Risk Assessment (Adult) History of falling in the last 3 months, kc6 including since admission No falls in past 3 months (0 pts) Confusion or Disorientation No (0 pts) Intoxicated or Sedated No (0 pts) Impaired Gait No (0 pts) Mobility Assist Device Used No (0 pt) Altered Elimination No (0 pt) Score/Fall Risk Level 0 - 2 = Low Risk Oriented to surroundings, Maintained a safe environment. Abuse screen: Denies threats or abuse. Denies injuries from another. Nutritional screening: No deficits noted. Tuberculosis screening: No symptoms or risk factors identified. Assessment: 10:42 General: Appears in no apparent distress. comfortable, well groomed, well developed, kc6 Behavior is calm, cooperative, appropriate for age. Pain: Denies pain. Neuro: Level of Consciousness is awake, alert, obeys commands, Oriented to person, place, time, situation, Appropriate for age Reports weakness. Cardiovascular: Capillary refill < 3 seconds. Respiratory: Airway is patent Trachea midline Respiratory effort is even, unlabored, Respiratory pattern is regular, symmetrical. GI: Abdomen is flat, non-distended, Bowel sounds present X 4 quads. Reports diarrhea, intolerance of fluids, intolerance of food, nausea, vomiting, Patient currently denies abdominal pain. : No signs and/or symptoms were reported regarding the genitourinary system. EENT: No signs and/or symptoms were reported regarding the EENT system. Derm: No signs and/or symptoms reported regarding the dermatologic system. Skin is intact, is healthy with good turgor, Skin is dry, Skin is pale, Skin temperature is warm. Musculoskeletal: No signs and/or symptoms reported regarding the musculoskeletal system. Circulation, motion, and sensation intact. Capillary refill < 3 seconds, Range of motion: intact in all extremities. 11:42 Reassessment: Patient appears in no apparent distress at this time. No changes from kc6 previously documented assessment. Patient and/or family updated on plan of care and expected duration. Pain level reassessed. Patient is alert, oriented x 3, equal unlabored respirations, skin warm/dry/pink. 12:51 Reassessment: Patient appears in no apparent distress at this time. No changes from kc6 previously documented assessment. Patient and/or family updated on plan of care and expected duration. Pain level reassessed. Patient is alert, oriented x 3, equal unlabored respirations, skin warm/dry/pink. Vital Signs: 10:16 BP 144 / 93; Pulse 77; Resp 16; Temp 98.2; Pulse Ox 100% on R/A; Weight 63.5 kg; Height iw 5 ft. 4 in. ; 12:51 BP 144 / 75; Pulse 78; Resp 17 S; Pulse Ox 98% on R/A; kc6 10:16 Body Mass Index 24.03 (63.50 kg, 162.56 cm) iw ED Course: 10:07 Patient arrived in ED. ra3 10:10 Alexys Lynn MD is Attending Physician. ec2 10:17 Triage completed. iw 10:18 Arm band placed on. iw 10:19 Noelle Page, RN is Primary Nurse. kc6 10:42 Patient has correct armband on for positive identification. Bed in low position. Call kc6 light in reach. Side rails up X 1. Adult w/ patient. Pulse ox on. NIBP on. Door closed. Noise minimized. Lights dimmed. Warm blanket given. Pillow given. 10:42 Inserted saline lock: 20 gauge in right antecubital area, using aseptic technique. kc6 Blood collected. Flushed with 10 mL NS. 10:42 Patient maintains SpO2 saturation greater than 95% on room air. kc6 11:02 XRAY Chest (1 view) In Process Unspecified. EDMS 11:28 CT Abd/Pelvis - IV Contrast Only In Process Unspecified. EDMS 12:51 No provider procedures requiring assistance completed. IV discontinued, intact, kc6 bleeding controlled, No redness/swelling at site. Pressure dressing applied. Administered Medications: 10:41 Drug: NS 0.9% IV 500 ml IV at bolus once; to be given as a bolus over 30 minutes Route: kc6 IV; Rate: bolus; Site: right antecubital; 12:50 Follow up: Response: No adverse reaction; IV Status: IV infiltrated kc6 11:45 Not Given (Patient Refused): ondansetron 4 mg IVP once; over 2 minutes kc6 Medication: 12:52 VIS not applicable for this client. kc6 Outcome: 12:22 Discharge ordered by . ec2 12:51 Discharged to home ambulatory, with significant other, kc6 12:51 Condition: good 12:51 Discharge instructions given to patient, significant other, Instructed on discharge instructions, follow up and referral plans. medication usage, Demonstrated understanding of instructions, follow-up care, medications, Prescriptions given X 1, 12:52 Patient left the ED. kc6 Signatures: Dispatcher [employer] Martha Encarnacion RN RN iw Noelle Page RN RN kc6 Alexys Lynn MD MD ec2 Alva, Ruby ra3 Corrections: (The following items were deleted from the chart) 10:18 10:16 BP 144 / 93; Pulse 77bpm; Resp 16bpm; Pulse Ox 100% RA; Temp 98.2F; [facility]
--- NOTE | 2024-06-26 12:23 | EDPHYS ---
Physician Documentation [facility] Name: Citlaly Clements Age: 83 yrs Sex: Female : 1940 Arrival Date: 06/26/2024 Time: 10:03 Bed 13 Private MD: ED Physician Alexys Lynn HPI: 06/26 10:31 This 83 yrs old Female presents to ER via Wheelchair with complaints of ec2 Weakness. 10:31 Patient arrives today for evaluation of generalized weakness. Patient reports that she ec2 has been having issues with nausea, vomiting, diarrhea that have since improved however still having some abdominal cramping. Reports decreased p.o. intake, decreased fluid intake. Patient reports decreased urine output as well.4. Historical: - Allergies: 10:17 Epinephrine; panic attack; iw 10:17 PENICILLINS; iw 10:17 Codeine; iw 10:17 Sulfa (Sulfonamide Antibiotics); iw - PMHx: 10:17 GERD; irregular heart beat; iw - PSHx: 10:17 slipped disc; iw - Immunization history:: Adult Immunizations up to date. - Infectious Disease History:: Denies. - Social history:: Smoking status: Patient denies any tobacco usage or history of. ROS: 10:31 Constitutional: as per hpi ec2 Exam: 10:31 Constitutional: GEN: NAD Head: atraumatic Eyes: EOMI Ears: External ears are ec2 normal. CV: regular rate LUNGS: no respiratory distress ABD: non-distended, soft, tender in the right abdomen, not guarding, not rigid SKIN: no evidence of rashes MSK: no evidence of trauma Vital Signs: 10:16 BP 144 / 93; Pulse 77; Resp 16; Temp 98.2; Pulse Ox 100% on R/A; Weight 63.5 kg; Height iw 5 ft. 4 in. ; 12:51 BP 144 / 75; Pulse 78; Resp 17 S; Pulse Ox 98% on R/A; kc6 10:16 Body Mass Index 24.03 (63.50 kg, 162.56 cm) iw MDM: 10:14 Medical Screening Exam initiated ec2 10:31 Data reviewed: vital signs, nurses notes. ED course: Patient arrives today for ec2 evaluation of generalized weakness in the setting of recent nausea and vomiting and diarrhea. Examination is revealing for abdominal TTP. Will obtain lab work, CT imaging as well as urine studies and chest x-ray. Differential includes viral process, colitis, doubt appendicitis, additionally considered UTI.. 10:32 ED course: EKG obtained, independently reviewed and interpreted by me, shows normal ec2 sinus rhythm, rate of 65, no acute ST segment elevations, intervals are nonactionable.. 11:09 ED course: Metabolic profile unrevealing. Troponin within normal ranges.. ec2 12:22 ED course: CT imaging shows constipation, urine noninfectious, lab work overall ec2 unremarkable. Will discharge home have the patient follow-up with PCP. Return precautions given. Suspect resolution of gastroenteritis.. 12 10:19 Order name: Basic Metabolic Panel; Complete Time: 11:09 ec2 06/26 10:19 Order name: CBC with Diff; Complete Time: 10:55 ec2 06/26 10:19 Order name: NT PRO-BNP; Complete Time: 11:09 ec2 06/26 10:19 Order name: Troponin HS; Complete Time: 11:09 ec2 06/26 10:19 Order name: UAM; Complete Time: 11:57 ec2 06/26 10:19 Order name: XRAY Chest (1 view); Complete Time: 11:22 ec2 02 10:27 Order name: CT Abd/Pelvis - IV Contrast Only; Complete Time: 11:47 ec2 02 10:19 Order name: EKG; Complete Time: 10:19 ec2 02 10:19 Order name: Cardiac monitoring; Complete Time: 10:33 ec2 06/26 10:19 Order name: EKG - Nurse/Tech; Complete Time: 10:33 ec2 06/26 10:19 Order name: IV Saline Lock; Complete Time: 10:41 ec2 06/26 10:19 Order name: Labs collected and sent; Complete Time: 10:41 ec2 06/26 10:19 Order name: O2 Per Protocol; Complete Time: 10:20 ec2 06/26 10:19 Order name: O2 Sat Monitoring; Complete Time: 10:20 ec2 Administered Medications: 10:41 Drug: NS 0.9% IV 500 ml IV at bolus once; to be given as a bolus over 30 minutes Route: kc6 IV; Rate: bolus; Site: right antecubital; 12:50 Follow up: Response: No adverse reaction; IV Status: IV infiltrated kc6 11:45 Not Given (Patient Refused): ondansetron 4 mg IVP once; over 2 minutes kc6 Disposition Summary: 06/26/24 12:22 Discharge Ordered Notes: Location: Home ec2 Condition: Stable ec2 Diagnosis - Weakness ec2 Followup: ec2 - With: Private Physician - When: - Reason: Re-evaluation by your physician Discharge Instructions: - Discharge Summary Sheet ec2 - Weakness ec2 Forms: - Medication Reconciliation Form ec2 - Antibiotic Education ec2 - Prescription Opioid Use ec2 - Patient Portal Instructions ec2 - Leadership Thank You Letter ec2 Prescriptions: - Zofran 4 mg Oral Tablet - take 1 tablet ORAL route every 12 hours As needed; 20 tablet; Refills: 0, ec2 Product Selection Permitted Signatures: Dispatcher [employer] Martha Encarnacion RN RASTA iw Noelle Page RN RN kc6 Alexys Lynn MD MD ec2 Corrections: (The following items were deleted from the chart) 10:27 10:27 Abdomen Pelvis W Con+CT.RAD.BRZ ordered. TREVOR MURRAY
[2024-06-26 12:58] VITALS: TEMP 98.2
[2024-06-26 12:59] VITALS: BP 144/75; O2SAT 98
== END 2024-06-26 12:52 | disposition home or self-care (01) ==
LOC: ER 10:03
DX: R53.1 Weakness (principal); K21.9 Gastro-esophageal reflux disease without esophagitis; Z88.0 Allergy status to penicillin; Z88.2 Allergy status to sulfonamides; Z88.5 Allergy status to narcotic agent; Z88.8 Allergy status to other drugs, medicaments and biological substances
CPT/HCPCS: 96361; 85025; 81001; 80048; 36415; 84484; 83880; 74177; 71045; 96360; 99284; Q9967; J7040; J2405